=== PATIENT | female | born 2000 | race Two or more races ===

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

== ENCOUNTER 2021-03-09 18:47 | Emergency (ER) | payer MEDICAID ==
[~2021-03-09] VITALS: Ht 167.6 cm; Wt 56.6 kg
[2021-03-09 18:50] VITALS: BP 107/71
[2021-03-09 19:17] LABS: MICROSCOPIC AUTO
--- NOTE | 2021-03-09 19:59 | NUR ---
PT LEFT LOBBY MIGEL
== END 2021-03-09 20:09 | disposition left against medical advice (07) ==
LOC: ED 19:17
DX: R30.0 Dysuria (principal)
CPT/HCPCS: 81001; 81025; 87077; 87086; 87147; 87184; 87186; 99283

== ENCOUNTER 2021-03-10 13:21 | Emergency (ER) | payer MEDICAID ==
[~2021-03-10] VITALS: Ht 167.6 cm; Wt 56.5 kg
--- NOTE | 2021-03-10 13:32 | NUR ---
attempted to room pt from lobby, pt in BR
--- NOTE | 2021-03-10 13:34 | NUR ---
pt from lobby to room 13
[2021-03-10] MEDS ORDERED: GENTAMICIN 80 MG/2 ML IM ONE (14:00)
[2021-03-10] MEDS ORDERED: CEFTRIAXONE 1,000 MG IM ONE (14:00)
--- NOTE | 2021-03-10 14:00 | NUR ---
BREAK RN: REQUESTED MEDICATION FROM PHARMACY.
[2021-03-10 14:11] LABS: HCG UR SG 1.021 (1.003-1.030); MICROSCOPIC AUTO
[2021-03-10] MEDS ORDERED: AZITHROMYCIN 500 MG TABLET PO ONE (14:30)
[2021-03-10 14:46] LABS: CLUE CELLS PRESENT (NONE SEEN); WET PREP WBCS FEW (FEW)
[2021-03-10] MEDS ORDERED: AZITHROMYCIN 500 MG TABLET ONE (15:23)
--- NOTE | 2021-03-10 15:35 | NUR ---
MED RECEIVED FROM PHARMACY, GIVEN TO PT. CONTINUE TO MONITOR AND DISCHARGE WHEN ABLE.
[2021-03-10 16:06] VITALS: BP 95/52
== END 2021-03-10 16:08 | disposition home or self-care (01) ==
LOC: ED 15:54
DX: N30.00 Acute cystitis without hematuria (principal); N76.0 Acute vaginitis
CPT/HCPCS: 81001; 81025; 87077; 87086; 87210; 87491; 87591; 87808; 96372; 99283; J1580

== ENCOUNTER 2021-05-13 18:11 | Emergency (ER) | payer MEDICAID ==
[~2021-05-13] VITALS: Ht 167.6 cm; Wt 53.9 kg
--- NOTE | 2021-05-13 19:00 | NUR ---
RECEIVED REPORT FROM RADU ACOSTA. PT UPRIGHT ON GURNEY AWAKE & CALM, RESPONDS APPROP TO STAFF, COMFORT MEASURES PROVIDED, FRIEND AT BS, CALL LIGHT WITHIN REACH.
[2021-05-13 19:28] LABS: BASOPHILS % (AUTO) 1 % (0-1); EOSINOPHILS % (AUTO) 1 % (1-7); LYMPHOCYTES % (AUTO) 36 % (22-44); MEAN CORPUSCULAR HEMOGLOBIN 31.8 pg (27.0-34.8); MEAN CORPUSCULAR HGB CONC 33.8 g/dL (32.4-35.8); MEAN PLATELET VOLUME 8.8 fL (7.4-10.4); MONOCYTES % (AUTO) 6 % (2-9); NEUTROPHILS % (AUTO) 57 % (42-75); PLATELET COUNT 193 x10^3/uL (130-400); RED BLOOD COUNT 4.09 x10^6/uL (3.82-5.3); RED CELL DISTRIBUTION WIDTH 13.7 % (9.6-15.2)
--- NOTE | 2021-05-13 19:40 | NUR ---
PT TO US
[2021-05-13 19:44] LABS: ALBUMIN 3.6 g/dL (3.4-5.0); CALCIUM 8.8 mg/dL (8.5-10.1)
[2021-05-13 19:55] LABS: ANION GAP 5 mmol/L (5-15); CHLORIDE 110 mmol/L (98-107)
[2021-05-13 20:06] LABS: CREATININE 0.52 mg/dL (0.55-1.02)
--- NOTE | 2021-05-13 20:38 | NUR ---
PT RETURNED FROM US, LAYING ON GURNEY AWAKE & COMFORTABLE, WATCHING TV, RESPONDS APPROP CAROL, LASHANDA, COMFORT MEASURES PROVIDED, CALL LIGHT WITHIN REACH.
--- NOTE | 2021-05-13 20:51 | NUR ---
UA SENT TO LAB, REPORT GIVEN TO RUY ACOSTA
[2021-05-13 21:06] LABS: MICROSCOPIC INDICATED
[2021-05-13 21:10] VITALS: BP 95/54
--- NOTE | 2021-05-13 21:10 | NUR ---
RECEIVED REPORT FROM DAVE COLIN. PT RESTING ON KAJAL. NADN. MACKENZIE.
--- NOTE | 2021-05-13 21:45 | NUR ---
ERP DR. CARLSON AT BEDSIDE FOR RE-EVAL.
== END 2021-05-13 22:05 | disposition home or self-care (01) ==
LOC: ED 19:00
DX: O23.11 Infections of bladder in pregnancy, first trimester (principal); O03.39 Incomplete spontaneous abortion with other complications; R31.9 Hematuria, unspecified; O99.331 Smoking (tobacco) complicating pregnancy, first trimester; O99.351 Diseases of the nervous system complicating pregnancy, first trimester; F17.200 Nicotine dependence, unspecified, uncomplicated; Z3A.01 Less than 8 weeks gestation of pregnancy
CPT/HCPCS: 36415; 76830; 80048; 81001; 82040; 84702; 85025; 86901; 87077; 87086; 87186; 99284

== ENCOUNTER 2021-06-07 19:03 | Emergency (ER) | payer MEDICAID ==
[~2021-06-07] VITALS: Ht 167.6 cm; Wt 54.3 kg
[2021-06-07 19:08] VITALS: BP 97/66
[2021-06-07] MEDS ORDERED: SODIUM CHLORIDE 0.9% 1,000ML IVBOLUS ONE (20:30)
--- NOTE | 2021-06-07 21:41 | NUR ---
NIL X1
--- NOTE | 2021-06-07 23:23 | NUR ---
NEY 2 @[id number]
--- NOTE | 2021-06-08 | NUR ---
NILX 3@ 0000
== END 2021-06-08 00:02 | disposition left against medical advice (07) ==
LOC: ED 19:30
DX: D64.9 Anemia, unspecified (principal); O03.4 Incomplete spontaneous abortion without complication; R94.31 Abnormal electrocardiogram [ECG] [EKG]
CPT/HCPCS: 93005; 99283